=== PATIENT | female | born 1995 | race Hispanic/Latino ===

== ENCOUNTER 2021-02-27 06:15 | Day surgery (SDC) | payer MEDICAID, OTHER ==
--- NOTE | 2021-02-23 12:05 | History and Physical Report ---
History of Present Illness Date of examination: 02/20/21 Date of admission: 02/27/21 Chief complaint: heavy bleeding, bleeding with sex History of present illness: Pt has h/o regular periods that have gotten heavier with passage of clots. She also has h/o bleeding after and during sex. She was diagnosed with endometrial mass in 2018 and was to have removal but did not due to covid. Pt was in in office in 2020 and continued to have same issues. Repeat SIS showed she still had a ~1cm mass in the endometrium. Pt presents for hysteroscopy with removal via myosure. All risk, benefits, and alternatives were d/w pt and all questions were addressed and answered. Consent was signed and placed on the chart. 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 of genital herpes: no Partner hx. 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 History: other (see hpi) Family/Genetic History: other (see hpi) Social history: other (see hpi) Medications and Allergies Allergies Allergy/AdvReac Type Severity Reaction Status Date / Time sulfamethoxazole Allergy Itching Verified 02/20/21 16:29 [From Bactrim] trimethoprim [From Bactrim] Allergy Itching Verified 02/20/21 16:29 Home Medications Medication Instructions Recorded Confirmed Last Taken Type Gabapentin [Neurontin] 300 mg PO TID 02/20/21 02/20/21 Unknown History Hydroxychloroquine [Plaquenil] 200 mg PO QDAY 02/20/21 02/20/21 Unknown History Metoprolol [Lopressor TAB] 50 mg PO DAILY 02/20/21 02/20/21 Unknown History Review of Systems All systems: negative - Physical Exam Cardiovascular: Normal S1, Normal S2 Lungs: Positive: Clear to auscultation, Normal air movement Abdomen: Positive: normal appearance, soft. Negative: distention, tenderness, guarding Genitourinary (Female): Positive: normal external genitalia, normal perenium Extremities: Positive: normal Results All other labs normal. Assessment and Plan - Patient Problems (1) Menometrorrhagia Status: Acute (2) Endometrial mass Status: Acute Plan to address problem: -admit and prepare for above stated procedure -consents signed and placed on the chart.
[~2021-02-27 06:15] MED LIST: SODIUM CHLORIDE 0.9% IRRIG SOLN 2000 ML IR ONE; ceFAZolin/Water 2 GM/20 ML 2 GM/20 ML SYRINGE IV NR
[2021-02-27] MEDS ORDERED: propofoL 200 MG/20 ML VIAL IV ONE (07:18)
[2021-02-27] MEDS ORDERED: HYDROmorphone 1 MG/1 ML INJ ONE (07:18)
[2021-02-27] MEDS ORDERED: LIDOCAINE MPF (2%) 20 MG/1 ML VIAL 5 ML ONE (07:18)
[2021-02-27] MEDS ORDERED: LACTATED RINGERS 1,000 ML ONE (07:34)
--- NOTE | 2021-02-27 07:34 | Anesthesia Day of Surgery ---
Anesthesia Day of Surgery - Day of Surgery Patient Examined: Yes Patient H&P Reviewed: Yes Patient is NPO: Yes Beta Blockers: Yes
--- NOTE | 2021-02-27 07:34 | Anesthesia Consultation ---
Anesthesia Consult and Med Hx Date of service: 02/27/21 - Airway Anesthetic Teeth Evaluation: Good (#8 and #9 are glued in teeth. Can break with pressure) ROM Head & Neck: Adequate Mental/Hyoid Distance: Adequate Mallampati Class: Class I Intubation Access Assessment: Good - Pre-Operative Health Status ASA Pre-Surgery Classification: ASA2 Proposed Anesthetic Plan: General - Cardiovascular System Hx Hypertension: Yes - Central Nervous System Hx Back Pain: No Hx Psychiatric Problems: No - Other Systems Hx Alcohol Use: No Hx Substance Use: No Hx Cancer: No - Additional Comments Anesthesia Medical History Comments: has been tested for autoimmune disease
[2021-02-27] MEDS ORDERED: SCOPOLAMINE TRANSDERMAL PATCH 72 HR TD ONE (07:35)
[2021-02-27] MEDS ORDERED: FAMOTIDINE 20 MG/2 ML INJ IV ONE (07:35)
[2021-02-27] MEDS ORDERED: FAMOTIDINE 20 MG/2 ML INJ IV NR (08:00)
[2021-02-27] MEDS ORDERED: LACTATED RINGERS 1,000 ML IV SCH (08:00)
[2021-02-27] MEDS ORDERED: CELECOXIB 200 MG CAP PO NR (08:00)
[2021-02-27] MEDS ORDERED: GABAPENTIN 300 MG CAP PO NR (08:00)
[2021-02-27] MEDS ORDERED: MIDAZOLAM 2 MG/2 ML INJ IV NR (08:00)
[2021-02-27] MEDS ORDERED: SCOPOLAMINE TRANSDERMAL PATCH 72 HR TD NR (08:00)
[2021-02-27] MEDS ORDERED: ONDANSETRON 4 MG/2 ML INJ ONE (08:44)
[2021-02-27] MEDS ORDERED: KETOROLAC 30 MG/1 ML INJ ONE (08:44)
[2021-02-27] MEDS ORDERED: dexAMETHasone 20 MG/5 ML VIAL ONE (08:44)
--- NOTE | 2021-02-27 08:51 | Operative Report ---
Operative Report Operative Report: Date of procedure: 02/27/2021 Pre-operative diagnosis: Menorrhagia Endometrial mass Post-operative diagnosis: Same Procedure name(s): 1. Hysteroscopy 2. MyoSure Surgeon: Raven Andrea M.D. Electrical Products Sales Engineer: VICKI Anesthesia: General EBL: Minimal Urine output: Approximately 50 cc of clear urine out prior to the onset of the procedure via straight catheterization Fluids: 1 L Fluid deficit: 300 mL Findings: Thickened endometrial tissue. No clear distinct mass or polyp could be noted within the thickened tissue. Both ostia identified and appeared to be normal. Normal cervix. Indications: Patient with complaints of menorrhagia as well as postcoital bleeding and was diagnosed with endometrial mass approximately a year to a year and a half ago. Follow studies identified the mass was still present. Patient desired removal of mass. Previous endometrial biopsy was negative. All risk benefits and alternatives were discussed with the patient. Consents were signed and placed on the chart. Procedure: Patient was taken to the operating room where she was placed under general endotracheal anesthesia she was then prepped and draped in normal sterile fashion in dorsal lithotomy position with legs in Demetrio stirrups. Straight catheterization of the bladder was performed at this time. Sterile sp eculum was placed inside of the vagina to visualize the entire cervix. The anterior lip of the cervix was grasped with a single-tooth tenaculum and the uterus was sounded to 9 cm. The cervix was then dilated in order to allow passage of the hysteroscope. Hysteroscopy yielded the above-stated findings. the Myosure device was then used to suction and remove thickened tissue of the endometrium. Both ostia were noted on exam. At the end of the procedure, cavity appears clear and all masses had been removed. All instruments were removed from the vagina and the cervix. Patient tolerated the procedure well. All counts were correct.
--- NOTE | 2021-02-27 08:52 | Short Stay Summary ---
Short Stay Documentation Date of service: 02/27/21 - History H&P: dictated Social history: other (see hpi) - Allergies and Medications Current Medications: Allergies sulfamethoxazole [From Bactrim] Allergy (Verified 02/20/21 16:29) Itching trimethoprim [From Bactrim] Allergy (Verified 02/20/21 16:29) Itching Home Medications Medication Instructions Recorded Confirmed Last Taken Type Gabapentin [Neurontin] 300 mg PO TID 02/20/21 02/20/21 Unknown History Hydroxychloroquine [Plaquenil] 200 mg PO QDAY 02/20/21 02/20/21 Unknown History Metoprolol [Lopressor TAB] 50 mg PO DAILY 02/20/21 02/20/21 Unknown History Ibuprofen [Motrin 800 MG tab] 800 mg PO Q8HR PRN #30 tablet 02/27/21 Unknown Rx oxyCODONE /ACETAMINOPHEN [Percocet 1 tab PO Q4HR #10 tab 02/27/21 Unknown Rx 5/325] Active Medications Celecoxib (Celecoxib 200 Mg Cap) 200 mg PO PREOP NR Stop: 02/27/21 13:00 Famotidine (Famotidine 20 Mg/2 Ml Inj) 20 mg IV PREOP NR Stop: 02/27/21 13:00 Gabapentin (Gabapentin 300 Mg Cap) 300 mg PO PREOP NR Stop: 02/27/21 13:00 Cefazolin Sodium (Ancef/Sterile Water 2 Gm/20 Ml) 2 gm in 20 mls @ 80 mls/hr IV PREOP NR; Protocol Stop: 02/27/21 23:00 Lactated Ringer's (Lactated Ringers) 1,000 mls @ 100 mls/hr IV DIRECT DONI Midazolam HCl (Midazolam 2 Mg/2 Ml Inj) 2 mg IV PREOP NR Stop: 02/27/21 23:59 Scopolamine (Scopolamine Transdermal Patch 72 Hr) 1 each TD PREOP NR Stop: 02/27/21 23:00 - Brief post op/procedure progress note Date of procedure: 02/27/21 Pre-op diagnosis: endometrial mass; menorrhagia Post-op diagnosis: same Procedure: hysteroscopy myosure D&C Anesthesia: GETA Findings: see op note Surgeon: ALEX RODRIGUEZ Estimated blood loss: minimal Pathology: list (uterine contents) Condition: stable - Hospital course Hospital course: Pt was admitted for above stated procedure. She had procedure which was not complicated. Pt was d/c home after d/c criteria had been met. Pt will f/u in office in one week. - Disposition Condition at discharge: Good Disposition: 01 HOME / SELF CARE / HOMELESS - Discharge Diagnoses (1) Menometrorrhagia Status: Acute (2) Endometrial mass Status: Acute Short Stay Discharge Plan Additional Instructions: TAKE MEDS PRESCRIBED YOU MAY RESUME YOUR REGULAR DIET -- AVOID SPICY OR GREASY FOODS FOR FIRST MEAL KEEP FOLLOW UP APPOINTMENT DO NOT DRIVE, OPERATE HEAVY EQUIPMENT OR SIGN LEGAL DOCUMENTS X 24 HRS Follow up with: PRIMARY CARE, [Primary Care Provider] - 7 Days Forms: Outpatient Surgery DC Inst. Prescriptions: Ibuprofen [Motrin 800 MG tab] 800 mg PO Q8HR PRN #30 tablet PRN Reason: Pain, Moderate (4-6) oxyCODONE /ACETAMINOPHEN [Percocet 5/325] 1 tab PO Q4HR #10 tab
[2021-02-27] MEDS ORDERED: SODIUM CHLORIDE 0.9% IRRIG SOLN 2000 ML IR ONE (09:02)
[2021-02-27] MEDS ORDERED: HYDROmorphone 1 MG/1 ML INJ IV PRN (09:09)
[2021-02-27 10:13] VITALS: BP 106/53
--- NOTE | 2021-02-27 10:19 | Post Anesthesia Evaluation ---
- Post Anesthesia Evaluation Patient Participated: Yes Airway Patent: Yes Stable Respiratory Function: Yes Nausea/Vomiting: No Temp > 96.8F: Yes Pain Manageable: Yes Adequeate Hydration: Yes Anesthesia Complications: No Block Receding Appropriately: Not Applicable Patient on Ventilator: No
== END 2021-02-27 09:55 | disposition home or self-care (01) ==
LOC: OR 06:15
PROVIDERS: ATTEND Obstetrics & Gynecology
DX: N92.0 Excessive and frequent menstruation with regular cycle (principal); N84.0 Polyp of corpus uteri; I10 Essential (primary) hypertension; Z88.2 Allergy status to sulfonamides; Z88.8 Allergy status to other drugs, medicaments and biological substances; Z79.899 Other long term (current) drug therapy; Z98.890 Other specified postprocedural states
CPT/HCPCS: 58558; 81025; 88305; C1782; J0690; J1100; J1170; J1885; J2250; J2405; J2704; J3490; J7120